=== PATIENT | male | born 1960 | race Caucasian/White ===

== ENCOUNTER 2019-04-12 10:22 | Inpatient (IN) | payer OTHER ==
[~2019-04-12] VITALS: Ht 182.9 cm; Wt 126.0 kg
--- NOTE | 2019-04-12 10:35 | NUR ---
Assumed care of patient. C/O 5/10 CP, PELAYO and dizziness. Patient was given 324mg ASA and nitro x 1 prior to arrival. After nitro, patient went from A&Ox4 to A&Ox1 for about an hour. A&Ox4 in ED. EKG done. Placed on NBIP, pulse ox and monitoring and evaluation advisor. Will continue to monitor.
[2019-04-12] MEDS ORDERED: FENTANYL PF 100 MCG/2ML IV ONE (11:00)
[2019-04-12] MEDS ORDERED: FENTANYL PF 100 MCG/2ML ONE (11:09)
[2019-04-12 11:14] LABS: BASOPHILS # (AUTO) 0.01 x10^3/uL (0-0.1); BASOPHILS % (AUTO) 0 % (0-1); EOSINOPHILS # (AUTO) 0.16 x10^3/uL (0-0.4); EOSINOPHILS % (AUTO) 2 % (1-7); LYMPHOCYTES # (AUTO) 1.68 x10^3/uL (1-3.4); LYMPHOCYTES % (AUTO) 17 % (22-44); MD NO; MEAN CORPUSCULAR HEMOGLOBIN 31.7 pg (27.5-34.5); MEAN CORPUSCULAR HGB CONC 33.4 g/dL (33.2-36.2); MONOCYTES # (AUTO) 0.74 x10^3/uL (0.2-0.8); MONOCYTES % (AUTO) 7 % (2-9); NEUTROPHILS # (AUTO) 7.34 x10^3/uL (1.8-6.8); NEUTROPHILS % (AUTO) 74 % (42-75); PLATELET COUNT 337 x10^3/uL (130-400); RED BLOOD COUNT 5.02 x10^6/uL (4.38-5.82); RED CELL DISTRIBUTION WIDTH 13.6 % (9.4-14.8)
--- NOTE | 2019-04-12 11:18 | NUR ---
No difference in BP between left and right arm. Fentanyl admin. Family at bedside.
[2019-04-12 11:19] LABS: INTERNATIONAL NORMALIZED RATIO 1.15 (0.93-1.1)
[2019-04-12 11:21] LABS: ALANINE AMINOTRANSFERASE 26 U/L (12-78); ALBUMIN 3.8 g/dL (3.4-5.0); ANION GAP 6 mmol/L (5-15); CALCIUM 8.7 mg/dL (8.5-10.1); CHLORIDE 107 mmol/L (98-107); CREATININE 1.01 mg/dL (0.7-1.3)
[2019-04-12 11:25] LABS: ALKALINE PHOSPHATASE 50 U/L (45-117); BILIRUBIN,TOTAL 0.8 mg/dL (0.2-1.0); T4 (THYROXINE) 8.6 mcg/dL (4.5-12.1); TOTAL PROTEIN 7.4 g/dL (6.4-8.2); TROPONIN I < 0.015 ng/mL (0.000-0.045)
[2019-04-12 14:27] VITALS: BP 158/94
[2019-04-12] MEDS ORDERED: OMNIPAQUE 350 MG/ML, 100ML BOTTLE ONE (15:34)
[2019-04-12] MEDS ORDERED: ONDANSETRON 2MG/ML, 2ML IVPush PRN (16:00)
[2019-04-12] MEDS ORDERED: ACETAMINOPHEN 325 MG TABLET PO PRN (16:00)
[2019-04-12] MEDS ORDERED: morphine SULFATE 10 MG/ML, 1ML IVPush PRN (16:00)
[2019-04-12] MEDS ORDERED: ONDANSETRON ODT 4 MG PO PRN (16:00)
[2019-04-12] MEDS: ENOXAPARIN 40 MG/0.4 ML SQ SCH (16:09)
[2019-04-12 17:04] LABS: TROPONIN I < 0.015 ng/mL (0.000-0.045)
[2019-04-12 17:29] LABS: HEMOGLOBIN A1C 6.1 % (4.2-6.3)
[2019-04-12 19:54] VITALS: BP 133/78
[2019-04-12] MEDS ORDERED: POTASSIUM CHLORIDE 20 MEQ TAB.ER.PRT PO ONE (20:30)
[2019-04-12] MEDS ORDERED: ATORVASTATIN 40 MG TABLET PO SCH (21:00)
[2019-04-12 22:55] LABS: TROPONIN I < 0.015 ng/mL (0.000-0.045)
[2019-04-13 02:45] VITALS: BP 138/88
[2019-04-13 05:04] LABS: BASOPHILS # (AUTO) 0.07 x10^3/uL (0-0.1); BASOPHILS % (AUTO) 1 % (0-1); EOSINOPHILS # (AUTO) 0.27 x10^3/uL (0-0.4); EOSINOPHILS % (AUTO) 3 % (1-7); LYMPHOCYTES # (AUTO) 2.02 x10^3/uL (1-3.4); LYMPHOCYTES % (AUTO) 25 % (22-44); MD NO; MEAN CORPUSCULAR HEMOGLOBIN 31.9 pg (27.5-34.5); MEAN CORPUSCULAR HGB CONC 33.3 g/dL (33.2-36.2); MEAN CORPUSCULAR VOLUME 95.6 fL (81-97); MONOCYTES # (AUTO) 0.57 x10^3/uL (0.2-0.8); MONOCYTES % (AUTO) 7 % (2-9); NEUTROPHILS # (AUTO) 5.27 x10^3/uL (1.8-6.8); NEUTROPHILS % (AUTO) 64 % (42-75); PLATELET COUNT 300 x10^3/uL (130-400); RED BLOOD COUNT 4.89 x10^6/uL (4.38-5.82); RED CELL DISTRIBUTION WIDTH 13.8 % (9.4-14.8)
[2019-04-13 05:08] LABS: ALBUMIN 3.7 g/dL (3.4-5.0); ANION GAP 5 mmol/L (5-15); CALCIUM 8.5 mg/dL (8.5-10.1); CHLORIDE 107 mmol/L (98-107)
[2019-04-13 05:11] LABS: ALANINE AMINOTRANSFERASE 26 U/L (12-78); ALKALINE PHOSPHATASE 49 U/L (45-117); BILIRUBIN,TOTAL 0.9 mg/dL (0.2-1.0); CHOL/HDL RATIO 5.9; CHOLESTEROL, TOTAL 202 mg/dL (140-239); CREATININE 0.83 mg/dL (0.7-1.3); HDL CHOL % 17 % (26-37); HDL CHOLESTEROL (DIRECT) 34 mg/dL (40-60); LDL CHOLESTEROL,CALCULATED 129 mg/dL (54-169); LDL/HDL RATIO 3.8 (0.5-3.0); TOTAL PROTEIN 7.3 g/dL (6.4-8.2); TRIGLYCERIDES 196 mg/dL (50-200); VLDL CHOLESTEROL 39 mg/dL (0-25)
[2019-04-13] MEDS: SODIUM CHLORIDE 0.9% 1,000 ML IV SCH ×2 (05:28→16:35)
[2019-04-13] MEDS ORDERED: ASPIRIN 81 MG TABLET EC PO SCH (06:00)
[2019-04-13 06:55] VITALS: BP 141/83
[2019-04-13] MEDS ORDERED: VERAPAMIL 2.5 MG/ML, 2ML ONE ×2 (12:57→13:06)
[2019-04-13] MEDS ORDERED: TICAGRELOR 90 MG TABLET ONE ×2 (12:57→13:06)
[2019-04-13] MEDS ORDERED: MIDAZOLAM 1 MG/ML, 5ML ONE ×2 (12:57→13:06)
[2019-04-13] MEDS ORDERED: FENTANYL PF 100 MCG/2ML ONE ×2 (12:57→13:06)
[2019-04-13] MEDS ORDERED: LIDOCAINE 2%, 20ML ONE ×2 (12:58→13:07)
[2019-04-13] MEDS ORDERED: BIVALIRUDIN 250 MG ONE ×3 (12:58→13:07)
[2019-04-13] MEDS ORDERED: HEPARIN 1,000 UNITS/ML, 10ML ONE (13:07)
[2019-04-13] MEDS ORDERED: SODIUM CHLORIDE 0.9% 1,000 ML IV SCH (13:55)
[2019-04-13] MEDS ORDERED: ATOR40TA78 PO (15:48)
[2019-04-13] MEDS ORDERED: ASPI81TA45 PO (15:48)
[2019-04-13] MEDS: ENOXAPARIN 40 MG/0.4 ML SQ SCH (16:27)
== END 2019-04-13 18:15 | disposition home or self-care (01) | DRG 286 ==
LOC: ED 12:40 → EDIP 13:42 → 5SO 14:13
PROVIDERS: ADMIT Internal Medicine; ATTEND Internal Medicine
PROC: 4A023N7 Measurement of Cardiac Sampling and Pressure, Left Heart, Percutaneous Approach (ICD-10-PCS; principal; 2019-04-13)
PROC: B2111ZZ Fluoroscopy of Multiple Coronary Arteries using Low Osmolar Contrast (ICD-10-PCS; 2019-04-13)
PROC: B2151ZZ Fluoroscopy of Left Heart using Low Osmolar Contrast (ICD-10-PCS; 2019-04-13)
DX: I25.110 Atherosclerotic heart disease of native coronary artery with unstable angina pectoris (principal); J96.90 Respiratory failure, unspecified, unspecified whether with hypoxia or hypercapnia; G93.40 Encephalopathy, unspecified; E66.9 Obesity, unspecified; E74.39 Other disorders of intestinal carbohydrate absorption; E87.6 Hypokalemia; G47.33 Obstructive sleep apnea (adult) (pediatric); Z68.37 Body mass index [BMI] 37.0-37.9, adult; Z87.891 Personal history of nicotine dependence; Z99.81 Dependence on supplemental oxygen
CPT/HCPCS: 36415; 93458; 99285; J3490; 70450; 71045; 71275; 80053; 80061; 83036; 83735; 83880; 84436; 84443; 84484; 85025; 85610; 85730; 93005; 93306; 96374; 99156; 99157; C1769; C1894; G0378; J0583; J1644; J1650; J2250; J3010; Q9967; J7030